=== PATIENT | male | born 1985 | race Caucasian/White ===

== ENCOUNTER 2017-06-09 05:26 | Emergency (ER) | payer OTHER ==
[~2017-06-09] VITALS: Ht 182.9 cm; Wt 80.0 kg
[2017-06-09 05:30] VITALS: BP 122/61
[2017-06-09] MEDS ORDERED: FLUORESCEIN OPHTHALMIC 1 MG STRIP ONE (05:32)
[2017-06-09] MEDS ORDERED: PROPARACAINE OPHTH 0.5%, 15ML ONE (05:32)
== END 2017-06-09 07:03 | disposition home or self-care (01) ==
LOC: ED 06:10
DX: Z77.098 Contact with and (suspected) exposure to other hazardous, chiefly nonmedicinal, chemicals (principal)
CPT/HCPCS: 99283